=== PATIENT | female | born 1990 | race Hispanic/Latino ===

== ENCOUNTER 2025-08-31 20:09 | Emergency (ER) | payer BC ==
[~2025-08-31] VITALS: Ht 162.6 cm; Wt 87.5 kg
[2025-08-31 20:35] LABS: ADD UA MICROSCOPIC NO; APPEARANCE,URINE CLEAR (CLEAR); GLUCOSE, URINE (UA) NEGATIVE (NEGATIVE); LEUKOCYTE ESTERASE ,URINE NEGATIVE Leu/uL (NEGATIVE); NITRATE,URINE NEGATIVE (NEGATIVE); OCCULT BLOOD,URINE NEGATIVE (NEGATIVE)
[2025-08-31 20:37] LABS: HCG,QUALITATIVE URINE NEGATIVE (NEGATIVE)
--- NOTE | 2025-08-31 20:38 | ERN ---
ED Note History of Present Illness Stated Complaint: C/O BODYACHES, FEVER, HEADACHE, LOWER BACK PAIN Chief Complaint: Headache Time Seen by MD: 20:15 Dictation: PATIENT IS A 35-YEAR-OLD FEMALE COMING IN TONIGHT WITH FLU-LIKE SYMPTOMS TO INCLUDE FRONTAL HEADACHE, BACK PAIN BODY ACHES. SHE ALSO HAS A CLEAR RUNNY NOSE WITH A DRY COUGH AND MILD SORE THROAT. NO NAUSEA VOMITING NO DIARRHEA. NO LOSS OF TASTE OR SMELL. SHE STATES SHE HAS SEVERAL FAMILY MEMBERS CURRENTLY THAT HER SICK WITH THE INFLUENZA AT HOME. Allergies: Coded Allergies: No Known Allergies (Unverified Allergy, Unknown, 08/31/25) Past Medical History Past Medical History: Diabetes-Type II Surgical History: LMP: Aug 31, 2025 RN Note Reviewed/Agreed w/PFSH: Yes Review of System Dictation CONSTITUTIONAL: NEGATIVE EXCEPT FOR HPI FEVER CHILLS HEAD/FACE: NEGATIVE EXCEPT FOR HPI EENT: NEGATIVE EXCEPT FOR HPI CLEAR RHINITIS WITH SORE THROAT RESPIRATORY: NEGATIVE EXCEPT FOR HPI DRY COUGH GASTROINTESTINAL/ABDOMINAL: NEGATIVE EXCEPT FOR HPI GENITOURINARY: NEGATIVE EXCEPT FOR HPI MUSCULOSKELETAL: NEGATIVE EXCEPT FOR HPI INTEGUMENTARY: NEGATIVE EXCEPT FOR HPI NEUROLOGICAL/PSYCH: NEGATIVE EXCEPT FOR HPI HEMATOLOGIC/LYMPHATIC: NEGATIVE EXCEPT FOR HPI ALL SYSTEMS NEGATIVE, EXCEPT NOTED ABOVE. 13 POINT REVIEW OF SYSTEMS ASSESSED AND ALL NEGATIVE EXCEPT FOR ABOVE. Initial Vital Sign VS Vital Signs Date Time Temp Pulse Resp B/P (MAP) Pulse Ox O2 Delivery O2 Flow Rate FiO2 08/31/25 20:14 100.6 115 20 128/65 96 Room Air Physical Exam Dictation VITAL SIGNS REVIEWED GENERAL APPEARANCE: ALERT, ORIENTED X 3, N MILD TRESS, WELL DEVELOPED, NOURISHED. HEAD AND FACE: NON-TRAUMATIC. EYES: PERRL, PINK CONJUNCTIVAS, EYELID NO TRAUMA, ANTERIOR CHAMBER WITH ARCUS SENILIS. EARS: PINNAS INTACT AND NO SIGNS OF TRAUMA OR ERYTHEMA EAR CANALS CLEAR AND NO DISCHARGE TM NO ERYTHEMA NOSE: CLEAR DISCHARGE, NO BLEEDING. OROPHARYNX: MOUTH NORMAL, TONGUE PINK, PHARYNX CLEAR, MILD PHARYNGEAL ERYTHEMA, TONSILS NO EXUDATES, NO ABSCESSES NOTED, MUCOUS MEMBRANE MOIST UVULA IS MIDLINE, VOICE IS CLEAR NECK: SUPPLE, NON-TENDER, NO THYROMEGALY, NO MASSES, NO JVD, NO BRUITS BREAST:DEFERRED CHEST:NO TENDERNESS, NO CREPITUS, NO PARADOXICAL MOVEMENT, NO RETRACTIONS LUNGS:CLEAR, WELL-VENTILATED, SYMMETRIC, NO RALES, NO WHEEZING, NO RHONCHI, NO STRIDOR, GOOD BREATH SOUNDS BILATERALLY HEART: REGULAR RATE, REGULAR RHYTHM, NO MURMUR, NO GALLOPS VASCULAR: NO PERIPHERAL EDEMA, ABDOMEN: SOFT, POSITIVE BOWEL SOUNDS, NONDISTENDED, NO GUARDING, NONTENDER, NO REBOUND, NO MASSES NO HEPATOMEGALY, NO SPLENOMEGALY, NO WEST'S SIGN, NO HERNIAS. NEGATIVE CVAT BILATERALLY RECTAL: DEFERRED GENITAL: DEFERRED NEUROLOGICAL: NORMAL SPEECH, MOTOR FUNCTION INTACT, SENSORY FUNCTION INTACT MUSCULOSKELETAL: NECK NONTENDER, FULL RANGE OF MOTION, BACK NONTENDER, FULL RANGE OF MOTION, EXTREMITIES: NONTENDER, FULL RANGE OF MOTION SKIN: COLOR PINK, DRY, NO TURGOR, NO RASH, NO LACERATIONS, NO ABRASIONS, NO CONT USIONS. LYMPHATIC: DEFERRED Results (Laboratory/Radiology) Laboratory/Radiology Laboratory Tests Test 08/31/25 20:18 08/31/25 20:21 Urine Color COLORLESS (YELLOW) Urine Appearance CLEAR (CLEAR) Urine pH 6.0 (5.0-8.0) Urine Specific [place] 1.008 (1.001-1.031) Urine Protein NEGATIVE mg/dL (NEGATIVE) Urine Glucose (UA) NEGATIVE mg/dL (NEGATIVE) Urine Ketones NEGATIVE mg/dL (NEGATIVE) Urine Occult Blood NEGATIVE (NEGATIVE) Urine Nitrate NEGATIVE (NEGATIVE) Urine Bilirubin NEGATIVE mg/dL (NEGATIVE) Urine Urobilinogen 0.2 mg/dL (0.2-1.0) Urine Leukocyte Esterase NEGATIVE Adele/uL Urine HCG, Qualitative NEGATIVE (NEGATIVE) Influenza Type A Antigen Positive For Type A Influenza Type B Antigen Negative For Type B SARS-CoV-2 Antigen (Rapid) PRESUMPTIVE NEGATIVE Group A Streptococcus Rapid negative (NEGATIVE) Labs Reviewed?: Yes ED Course ED Course Orders Procedure Category Date Status Time Urinalysis Profile LAB 08/31/25 Complete 20:26 ,Urine Test LAB 08/31/25 Complete 20: Covid19 (Sars Antigen LAB 08/31/25 Complete Rapid) 20: Influenza Type A & B, LAB 08/31/25 Complete Rapid 20:26 Rapid (Group A Strep) LAB 08/31/25 Complete 20:26 Acetaminophen 500mg PHA 08/31/25 Complete Tab (Tylenol 500mg T 21:00 Oseltamivir Phosphate PHA 08/31/25 Verified (Tamiflu) 21:30 Current Medications Medications (Trade) Dose Ordered Sig/Jenni Route PRN Reason Start Time Stop Time Status Last Admin Dose Admin Acetaminophen (TYLenol 500MG TAB) 1,000 mg ONCE ONCE PO 08/31/25 21:00 08/31/25 21:01 DC 08/31/25 21:16 Vital Signs Date Time Temp Pulse Resp B/P (MAP) Pulse Ox O2 Delivery O2 Flow Rate FiO2 08/31/25 21:16 100.9 08/31/25 20:14 100.6 115 20 128/65 96 Room Air 2125/patient has a positive flu a on swab. Negative Medical Decision Making MDM Medical discharge making based on swabs for flu COVID and strep with a urinalysis Urinalysis negative Patient positive for influenza A Tamiflu 75mg p.o. initiation Discharged fever control instructions and rehydration DX & DISP Disposition: Discharge Departure Impression: Primary Impression: Influenza A Additional Impressions: Sinus headache, Fever Condition: Stable Scripts Ibuprofen (Ibuprofen 800 mg Tab) 800 Mg Tab 800 MG PO Q8H PRN for fever or pain, #30 TAB 0 Refills Prov: VINICIO JOSEPH 08/31/25 Oseltamivir Phosphate (Tamiflu) 75 Mg Cap 75 MG PO BID for 5 Days, #10 CAP Prov: VINICIO JOSEPH 08/31/25 Additional Instructions: Follow-up with primary care provider in 1 to 2 days. Take medications as directed here in the emergency room. Okay to continue home medications unless otherwise discussed during your visit in the emergency room today. Return to your nearest emergency room if symptoms worsen or if there is no improvement. Call 911 if you need immediate assistance. Take Tylenol or Motrin [id number] as needed and if no contraindications are present. Increase oral hydration. A wound culture or urine culture was ordered here in the emergency room department please follow-up with primary care provider and advise them to get repeat ports from our facility. If you had any Naun wrap/splints that were applied here, please do not remove them until you see your primary care or specialty. Take Tamiflu as directed until gone. Take ibuprofen every 6-8 hours with food as needed for fever pain. Increase your water intake. No work until 09/04/2025 Time of Disposition: 21:25 I have reviewed the case, and I agree with, Diagnosis and Plan VINICIO JOSEPH [facility] Aug 31, 2025 20:38
[2025-08-31 20:44] LABS: RAPID GROUP A STREP negative (NEGATIVE)
[2025-08-31 20:54] LABS: COVID19 (SARS ANTIGEN RAPID) PRESUMPTIVE NEGATIVE (NEGATIVE); INFLUENZA TYPE B Negative For Type B (NEGATIVE)
[2025-08-31 21:16] VITALS: TEMP 101
[2025-08-31 21:17] LABS: INFLUENZA TYPE A Positive For Type A (NEGATIVE)
[2025-08-31] MEDS ORDERED: OSEL75 PO (21:27)
[2025-08-31] MEDS ORDERED: IBUP-2077 PO (21:27)
[2025-08-31] MEDS: OSELTAMIVIR PHOSPHATE 75 MG CAP PO ONE (21:40)
[2025-08-31 21:45] VITALS: BP 112/71; PULSE 100; RESP 18; TEMP 100; O2SAT 98
== END 2025-08-31 21:46 | disposition home or self-care (01) ==
LOC: EDH 20:09
DX: J10.1 Influenza due to other identified influenza virus with other respiratory manifestations (principal); Z20.822 Contact with and (suspected) exposure to COVID-19; R51.9 Headache, unspecified; R50.9 Fever, unspecified; E11.9 Type 2 diabetes mellitus without complications
CPT/HCPCS: 81003; 81025; 87426; 87804; 87880; 99283